=== PATIENT | male | born 1985 | race African-American/Black ===

== ENCOUNTER 2023-08-11 17:15 | Emergency (ER) | payer OTHER ==
[~2023-08-11] VITALS: Ht 180.3 cm; Wt 77.1 kg
[2023-08-11 17:40] VITALS: BP 127/72; TEMP 98.2; O2SAT 99
[2023-08-11] MEDS ORDERED: KETO10TA2 PO (19:17)
== END 2023-08-11 19:53 | disposition home or self-care (01) ==
LOC: ER 17:19
DX: S52.501A Unspecified fracture of the lower end of right radius, initial encounter for closed fracture (principal); Z60.2 Problems related to living alone; W17.89XA Other fall from one level to another, initial encounter; Y93.51 Activity, roller skating (inline) and skateboarding; Y92.89 Other specified places as the place of occurrence of the external cause; Y99.8 Other external cause status
CPT/HCPCS: 73090-TC; 73110